=== PATIENT | female | born 1965 | race American Indian/Alaskan Native ===

== ENCOUNTER 2016-07-25 19:15 | Emergency (ER) | payer SELFPAY ==
[2016-07-25 20:36] VITALS: BP 151/93
--- NOTE | 2016-07-26 01:11 | Emergency Department Report ---
HPI - General Chief Complaint: Urogenital-Female Time Seen by Provider: 07/26/16 00:53 - HPI HPI: This is a 50-year-old female presents to ED complaining of vaginal discharge 2 weeks. Patient states she has had irregular periods since March 2016. Patient states last week she very heavy. With some pelvic pain and she went to primary [facility] and was seen. Patient states she was given an ultrasound that confirmed that she has fibroids. Patient was to follow-up with [facility] doctor but has not been able to follow-up 2 to insurance not active to August 03. Patient presents here today with concerns of vaginal irritation and discharge. Patient states that her discharge is a creamish greenish whitish and malodorous. Patient states vaginal itching as well. She denies dysuria/frequency or any other symptoms. ED Past Medical Hx - Past Medical History Hx Diabetes: Yes - Surgical History Additional Surgical History: TUBAL LIGATION - Social History Smoking Status: Never Smoker Substance Use Type: None - Medications Home Medications: Home Medications Medication Instructions Recorded Confirmed Last Taken Type Cyclobenzaprine [Flexeril 10 MG 10 mg PO TID PRN #15 tablet 10/28/14 Unknown Rx TAB] HYDROcodone/APAP 5-325 [Hughes 1 each PO Q8H PRN #15 tablet 10/28/14 Unknown Rx 5/325] metroNIDAZOLE [Flagyl TAB] 500 mg PO ONCE #4 tablet 07/26/16 Unknown Rx ED Review of Systems ROS: Stated complaint: VAG PAIN/DISCHARGE/IRREGULAR CYCLES Other details as noted in HPI Constitutional: denies: chills, fever Eyes: denies: eye pain, eye discharge, vision change ENT: denies: ear pain, throat pain Respiratory: denies: cough, shortness of breath, wheezing Cardiovascular: denies: chest pain, palpitations Endocrine: no symptoms reported Gastrointestinal: denies: abdominal pain, nausea, vomiting, diarrhea, constipation Genitourinary: abnormal menses. denies: urgency, dysuria, frequency, hematuria , discharge Musculoskeletal: denies: back pain, joint swelling, arthralgia Skin: denies: rash, lesions Neurological: denies: headache, weakness, paresthesias Psychiatric: denies: anxiety, depression Hematological/Lymphatic: denies: easy bleeding, easy bruising Physical Exam - Physical Exam Vital Signs: Vital Signs 07/25/16 20:32 Temperature 98.4 F Pulse Rate 100 H Respiratory 14 Rate Blood Pressure 151/93 O2 Sat by Pulse 100 Oximetry Physical Exam: GENERAL: Alert and oriented x3, no apparent distress, Normal Gait, atraumatic. HEAD: Head is normocephalic and a-traumatic. NECK: Supple. Non edematous, No carotid bruits. No lymphadenopathy or thyromegaly. No C-spine tenderness LUNGS: Symetrical with respiration, No wheezing, no rales or crackles, CTAB. HEART: S1, S2 present, regular rate and rhythm without murmur, no rubs, no gallops. ABDOMEN: No organomegaly was noted,Positive bowel sounds, soft, and non- distended. . Nontender to palpation on all Quadrants, NO CVA tenderness. GENITOURINARY: External genitalia without erythema, moderate external genitalia discharge seen. Vaginal vault is with severe greenish copious discharge. Cervix is of normal color without lesion. Cervical os is closed. Mild bleeding noted around vaginal gruber. Specifically upper vaginal wall Bleeding noted. Uterus is noted to be of normal size and nontender. Positive cervical motion tenderness. No masses are palpated. The adnexa are without masses or tenderness. EXTREMITIES/MUSCULOSKELETAL: No cyanosis, clubbing, rash, lesions or edema. Full ROM bilaterally. UE/LE Pulses 2+ bilaterally. Right ankle mild 1+ edema, no calf tenderness, pain, no right ankle pain, r ankle non tender to palpation ED Course Vital Signs 07/25/16 20:32 Temperature 98.4 F Pulse Rate 100 H Respiratory 14 Rate Blood Pressure 151/93 O2 Sat by Pulse 100 Oximetry ED Medical Decision Making - Medical Decision Making 50-year-old female presents with sexually-transmitted disease ED course: Wet prep and chlamydia and gonorrhea cultures sent to lab. Prep came back positive for trichomoniasis. Discussed findings with patient. Discussed the patient follow up with [facility] doctor or department for further STD testing and follow-up Patient treated empirically for all STD,- GC ,chlamydia and trich Patient sent home on another dose of metronidazole to take 1 time Discussed the patient is safe sex practices discussed possible treatment Discussed abstain from sex for about a week. Critical care attestation.: If time is entered above; I have spent that time in minutes in the direct care of this critically ill patient, excluding procedure time. ED Disposition Clinical Impression: Trichomonas vaginalis (TV) infection, STD (sexually transmitted disease) Disposition: DISCHARGED TO HOME OR SELFCARE Is pt being admited?: No Does the pt Need Aspirin: No Condition: Stable Instructions: Sexually Transmitted Diseases (ED), Safe Sex (ED), Trichomoniasis (ED) Prescriptions: metroNIDAZOLE [Flagyl TAB] 500 mg PO ONCE #4 tablet Referrals: PRIMARY CARE, [Primary Care Provider] - 3-5 Days [facility] [Outside] - 3-5 Days [facility] [Outside] - 3-5 Days Forms: Work/School Release Form(ED) Time of Disposition: 03:15
[2016-07-26] MEDS ORDERED: ROCEPHIN IM ONE (02:33)
[2016-07-26] MEDS ORDERED: FLAGYL PO ONE (02:34)
[2016-07-26] MEDS ORDERED: XYLOCAINE 1% MPF 5 mL INFILTRATI ONE (02:34)
[2016-07-26] MEDS ORDERED: ZITHROMAX PO ONE (02:34)
== END 2016-07-26 03:28 | disposition home or self-care (01) ==
LOC: ED 19:15
DX: A59.01 Trichomonal vulvovaginitis (principal); E11.9 Type 2 diabetes mellitus without complications; Z98.51 Tubal ligation status
CPT/HCPCS: 87210; 87591; 96372; 99284; J0696

== ENCOUNTER 2016-08-12 11:45 | Emergency (ER) | payer SELFPAY ==
[2016-08-12 12:54] LABS: Bilirubin,Urine NEG (Negative); Blood,Urine LG (Negative); Ketones,Urine NEG (Negative); Leukocyte Esterase,Urine NEG (Negative); Mucus,Urine FEW /HPF; Nitrite,Urine NEG (Negative); Urobilinogen,Urine < 2.0 mg/dL (<2.0)
[2016-08-12 12:55] LABS: RBC,Urine > 182.0 /HPF (0.0-6.0)
[2016-08-12 12:57] LABS: WBC,Urine < 1.0 /HPF (0.0-6.0)
[2016-08-12 12:59] LABS: Basophils % (Auto) 1.3 % (0.0-1.8); Eosinophils % (Auto) 3.4 % (0.0-4.3); Hematocrit 29.8 % (30.3-42.9); Hemoglobin 9.5 gm/dl (10.1-14.3); Mean Corpuscular HGB Conc 32 % (30-34); Mean Corpuscular Volume 80 fl (79-97); Platelet Count 264 K/mm3 (140-440); Red Blood Count 3.75 M/mm3 (3.65-5.03); Red Cell Distribution Width 14.8 % (13.2-15.2); White Blood Count 5.8 K/mm3 (4.5-11.0)
[2016-08-12 13:00] LABS: Mean Corpuscular Hemoglobin 25 pg (28-32)
[2016-08-12 13:01] LABS: BUN/Creatinine Ratio 27.14; Blood Urea Nitrogen 19 mg/dL (7-17); Calcium 9.3 mg/dL (8.4-10.2); Carbon Dioxide 25 mmol/L (22-30); Glucose 440 mg/dL (65-100)
[2016-08-12 13:02] LABS: Anion Gap 18 mmol/L; Potassium 4.1 mmol/L (3.6-5.0); Sodium 134 mmol/L (137-145)
[2016-08-12] MEDS ORDERED: NACL 0.9% 1000 ML 1,000 ML IV ONE (18:28)
--- NOTE | 2016-08-12 19:53 | History and Physical Report ---
Medications and Allergies Allergies Allergy/AdvReac Type Severity Reaction Status Date / Time ciprofloxacin [From Cipro] AdvReac Rash Verified 08/12/16 11:58 ciprofloxacin HCl AdvReac Rash Verified 08/12/16 11:58 [From Cipro] Exam - Constitutional Vitals: Temp Pulse Resp BP Pulse Ox 98.7 F 78 16 155/78 100 08/12/16 19:07 08/12/16 19:07 08/12/16 19:07 08/12/16 19:07 08/12/16 19:07 Results - Labs CBC & Chem 7: 08/12/16 12:32 08/12/16 12:32 Labs: Abnormal lab results 08/12/16 08/12/16 08/12/16 Range/Units 12:01 12:32 12:32 Hgb 9.5 L (10.1-14.3) gm/dl Hct 29.8 L (30.3-42.9) % MCH 25 L (28-32) pg Lymph % (Auto) 41.0 H (13.4-35.0) % [place] % (Auto) 9.1 H (0.0-7.3) % Sodium 134 L (137-145) mmol/L Chloride 95.0 L (98-107) mmol/L BUN 19 H (7-17) mg/dL Glucose 440 H (65-100) mg/dL POC Glucose 450 H (70-105) Hemoglobin A1c (4-6) % 08/12/16 Range/Units 12:32 Hgb (10.1-14.3) gm/dl Hct (30.3-42.9) % MCH (28-32) pg Lymph % (Auto) (13.4-35.0) % [place] % (Auto) (0.0-7.3) % Sodium (137-145) mmol/L Chloride (98-107) mmol/L BUN (7-17) mg/dL Glucose (65-100) mg/dL POC Glucose (70-105) Hemoglobin A1c 14.4 H (4-6) %
--- NOTE | 2016-08-12 22:28 | Emergency Department Report ---
<JOSHUA AYALA - Last Filed: 08/13/16 00:54> - General Chief complaint: Hyperglycemia Stated complaint: SEVERE YEAST INFECTION Time Seen by Provider: 08/12/16 18:27 Source: patient Mode of arrival: Ambulatory Limitations: No Limitations - History of Present Illness MD Complaint: generalized weakness -: Gradual Location: generalized Severity: mild Severity scale (0 -10): 0 Consistency: constant Improves with: medication (which she does not take) Worsens with: other (nto taking meds) Context: other (also vaginal itching. cg recently neg. took cipro and no better) Associated Symptoms: denies other symptoms - Related Data Previous Rx's Medication Instructions Recorded Last Taken Type Fluconazole [Diflucan] 100 mg PO QDAY #1 bottle 08/12/16 Unknown Rx glipiZIDE [Glucotrol Xl] 5 mg PO DAILY #30 tab.er.24 08/12/16 Unknown Rx Allergies Allergy/AdvReac Type Severity Reaction Status Date / Time ciprofloxacin [From Cipro] AdvReac Rash Verified 08/12/16 11:58 ciprofloxacin HCl AdvReac Rash Verified 08/12/16 11:58 [From Cipro] ED Review of Systems ROS: Stated complaint: SEVERE YEAST INFECTION Other details as noted in HPI Comment: All other systems reviewed and negative Constitutional: no symptoms reported, see HPI. denies: chills, diaphoresis, fever Eyes: as per HPI. denies: eye pain ENT: as per HPI. denies: ear pain, throat pain Respiratory: no symptoms reported, see HPI. denies: cough, orthopnea Cardiovascular: as per HPI. denies: chest pain, palpitations Endocrine: no symptoms reported, see HPI. denies: excessive sweating, flushing , intolerance to cold, intolerance to heat Gastrointestinal: as per HPI. denies: abdominal pain, nausea, vomiting, diarrhea, constipation, hematemesis, melena, hematochezia Genitourinary: as per HPI, frequency. denies: urgency, dysuria Musculoskeletal: denies: as per HPI ED Past Medical Hx - Past Medical History Previous Medical History?: Yes Hx Hypertension: No Hx CVA: No Hx Heart Attack/AMI: No Hx Congestive Heart Failure: No Hx Diabetes: Yes (TYPE 2) Hx Deep Vein Thrombosis: No Hx Pulmonary Embolism: No Hx GERD: No Hx Liver Disease: No Hx Renal Disease: No Hx of Cancer: No Hx Sickle Cell Disease: No Hx Arthritis: No Hx Headaches / Migraines: No Hx Seizures: No Hx Kidney Stones: No Hx Psychiatric Treatment: No Hx Asthma: No Hx COPD: No Hx Tuberculosis: No Hx Dementia: No Hx HIV: No - Surgical History Past Surgical History?: Yes Hx Coronary Stent: No Hx Open Heart Surgery: No Hx Pacemaker: No Hx Internal Defibrillator: No Hx Cholecystectomy: No Hx Appendectomy: No Hx Breast Surgery: No Additional Surgical History: TUBAL LIGATION - Social History Smoking Status: Never Smoker Substance Use Type: None - Medications Home Medications: Home Medications Medication Instructions Recorded Confirmed Last Taken Type Fluconazole [Diflucan] 100 mg PO QDAY #1 bottle 08/12/16 Unknown Rx glipiZIDE [Glucotrol Xl] 5 mg PO DAILY #30 tab.er.24 08/12/16 Unknown Rx ED Physical Exam - General Limitations: No Limitations General appearance: alert, in no apparent distress - Head Head exam: Present: atraumatic - Eye Eye exam: Present: normal appearance Pupils: Present: normal accommodation - ENT ENT exam: Present: normal exam, normal orophraynx, mucous membranes moist - Neck Neck exam: Present: normal inspection. Absent: tenderness - Respiratory Respiratory exam: Present: normal lung sounds bilaterally. Absent: respiratory distress, wheezes, rales, rhonchi, stridor - Cardiovascular Cardiovascular Exam: Present: regular rate, normal rhythm (95 on exam). Absent : bradycardia, tachycardia, irregular rhythm - GI/Abdominal GI/Abdominal exam: Present: soft, normal bowel sounds. Absent: distended, tenderness, guarding, rebound, rigid, diminished bowel sounds, hyperactive bowel sounds, hypoactive bowel sounds, organomegaly, mass, bruit, pulsatile mass , hernia - Rectal Rectal exam: Present: deferred - External exam: Present: normal external exam, other (states vaginal dc less than before. chart reviewed. not concerned for std. discussed role of bs in vag itching etc. ) - Extremities Exam Extremities exam: Present: normal inspection, full ROM, tenderness - Back Exam Back exam: Present: normal inspection - Neurological Exam Neurological exam: Present: alert, altered, oriented X3, CN II-XII intact, normal gait, reflexes normal. Absent: abnormal gait, motor sensory deficit - Psychiatric Psychiatric exam: Present: normal affect, normal mood. Absent: depressed, agitated, anxious, flat affect, manic, homicidal ideation, suicidal ideation - Skin Skin exam: Present: warm, dry, intact, normal color. Absent: rash, cyanosis, diaphoretic, erythema, urticaria, vesicles, petechiae, pallor, abrasion, ecchymosis ED Course Vital Signs 08/12/16 08/12/16 08/12/16 12:04 19:07 20:04 Temperature 98.2 F 98.7 F Pulse Rate 104 H 78 Respiratory 18 16 Rate Blood Pressure 122/79 Blood Pressure 155/78 [Right] O2 Sat by Pulse 98 100 98 Oximetry 08/12/16 22:43 Temperature Pulse Rate 95 H Respiratory 18 Rate Blood Pressure Blood Pressure 157/81 [Right] O2 Sat by Pulse 98 Oximetry - Reevaluation(s) Reevaluation #1: 08/12/16 pt has known dm she can not take metformin bc of gi distress here recent for vag itching does not have insurance lives in [facility] Discussed [facility] she will fu to get access to clinic discussed dm and role of sugar on body etc. she is in nad no cp no sob ambulatory taking po insulin Reevaluation #2: Dr. Murray given report. labs noted will send home on po and arrange follow up at [facility] given [facility] resident 08/12/16 22:35 doing well no cp no sob bs trending down ED Medical Decision Making - Lab Data Result diagrams: 08/12/16 12:32 08/12/16 12:32 - Medical Decision Making dm non adherent due to finances no dka pt educated plan of care dc home w [facility] follow up once bs trends downward Critical care attestation.: If time is entered above; I have spent that time in minutes in the direct care of this critically ill patient, excluding procedure time. ED Disposition Disposition: DC-09 OP ADMIT IP TO THIS HOSP Is pt being admited?: No Does the pt Need Aspirin: No Condition: Stable Instructions: Diabetes Mellitus Type 2 in Adults (ED), Meal Planning with Diabetes Exchanges (DC), Hyperglycemia, Non-Diabetic (ED), Diabetic Hyperglycemia (ED) Additional Instructions: take med as ordered follow up with [facility] as we discussed they can call here and get the records from today diabetic diet drink plenty of water safe sex Prescriptions: Fluconazole [Diflucan] 100 mg PO QDAY #1 bottle glipiZIDE [Glucotrol Xl] 5 mg PO DAILY #30 tab.er.24 Referrals: PRIMARY CARE,MD [Primary Care Provider] - 3-5 Days [facility] [Outside] - 3-5 Days Time of Disposition: 22:48 <MAYLIN MURRAY - Last Filed: 08/13/16 12:26> ED Medical Decision Making - Lab Data Result diagrams: 08/12/16 12:32 08/12/16 12:32 - Medical Decision Making PT was prescribed Diflucan 100 mg daily one bottle. I called the patient to let her know that I will be calling in a different dose at her pharmacy. I called the [facility] at the [facility] of [facility] and [address] at [phone]. Spoke to the pharmacist and clarify patient's Diflucan 150 by mouth 1 dose. I informed patient not to fill the previously prescribed Diflucan dose.
[2016-08-12 22:44] VITALS: BP 157/81
== END 2016-08-12 23:04 | disposition admitted as inpatient to this hospital (09) ==
LOC: ED 11:45
DX: N89.8 Other specified noninflammatory disorders of vagina (principal); R53.1 Weakness; E11.9 Type 2 diabetes mellitus without complications; Z88.1 Allergy status to other antibiotic agents
CPT/HCPCS: 36415; 80048; 81001; 82805; 82962; 83036; 84703; 85025; 96361; 96374; 96376; 99284; J7030; J1815

== ENCOUNTER 2016-10-16 16:52 | Emergency (ER) | payer SELFPAY ==
[2016-10-16 19:28] LABS: Hematocrit 30.7 % (30.3-42.9); Hemoglobin 9.5 gm/dl (10.1-14.3); Mean Corpuscular HGB Conc 31 % (30-34); Mean Corpuscular Volume 74 fl (79-97); Platelet Count 332 K/mm3 (140-440); Red Blood Count 4.18 M/mm3 (3.65-5.03); Red Cell Distribution Width 17.2 % (13.2-15.2); White Blood Count 9.1 K/mm3 (4.5-11.0)
[2016-10-16 19:37] LABS: Mean Corpuscular Hemoglobin 23 pg (28-32)
[2016-10-16 19:41] LABS: Albumin 3.5 g/dL (3.9-5); Albumin/Globulin Ratio 0.9 %; BUN/Creatinine Ratio 16.66; Bilirubin,Total 0.4 mg/dL (0.1-1.2); Calcium 8.7 mg/dL (8.4-10.2); Potassium 3.7 mmol/L (3.6-5.0); Total Protein 7.5 g/dL (6.3-8.2)
[2016-10-17] MEDS ORDERED: NACL 0.9% 1000 ML 1,000 ML IV ONE (01:20)
[2016-10-17] MEDS ORDERED: AMARYL PO ONE (01:30)
--- NOTE | 2016-10-17 01:31 | Emergency Department Report ---
HPI - General Chief Complaint: Hyperglycemia Time Seen by Provider: 10/17/16 01:20 - HPI HPI: 50-year-old -[place] female with history of diabetes for close to 20 years, has been out of medication for the past year. Today she was working at [employer] boxes outside in the hot air, felt very weak, unwell, thirsty and dizzy. Patient left work and walked to the bus stop, so she was given a pass out so she proceeded to walk to the fire department where she got help. Her glucose was found to be elevated and she was referred to the ED. ED Past Medical Hx - Past Medical History Previous Medical History?: Yes Hx Hypertension: No Hx CVA: No Hx Heart Attack/AMI: No Hx Congestive Heart Failure: No Hx Diabetes: Yes (TYPE 2) Hx Deep Vein Thrombosis: No Hx Pulmonary Embolism: No Hx GERD: No Hx Liver Disease: No Hx Renal Disease: No Hx Sickle Cell Disease: No Hx Arthritis: No Hx Headaches / Migraines: No Hx Seizures: No Hx Kidney Stones: No Hx Psychiatric Treatment: No Hx Asthma: No Hx COPD: No Hx Tuberculosis: No Hx Dementia: No Hx HIV: No - Surgical History Hx Coronary Stent: No Hx Open Heart Surgery: No Hx Pacemaker: No Hx Internal Defibrillator: No Hx Cholecystectomy: No Hx Appendectomy: No Hx Breast Surgery: No Additional Surgical History: TUBAL LIGATION - Family History Family history: hypertension - Social History Smoking Status: Never Smoker Substance Use Type: None - Medications Home Medications: Home Medications Medication Instructions Recorded Confirmed Last Taken Type Fluconazole [Diflucan] 100 mg PO QDAY #1 bottle 08/12/16 Unknown Rx glipiZIDE [Glucotrol Xl] 5 mg PO DAILY #30 tab.er.24 08/12/16 Unknown Rx ED Review of Systems ROS: Stated complaint: HIGH BLOOD SUGAR Other details as noted in HPI Comment: All other systems reviewed and negative Endocrine: excessive sweating, flushing, increased thirst, increased urine Gastrointestinal: as per HPI Physical Exam - Physical Exam Vital Signs: Vital Signs 10/16/16 10/17/16 17:12 00:54 Temperature 98.6 F Pulse Rate 93 H 84 Respiratory 18 18 Rate Blood Pressure 104/57 Blood Pressure 136/91 [Right] O2 Sat by Pulse 100 100 Oximetry Physical Exam: Gen. alert and oriented 3 in no distress Head atraumatic normocephalic Eyes PERR LA EOMI Chest regular rate and rhythm normal S1-S2 lungs clear bilaterally Abdomen soft nondistended Back no point tenderness paravertebral tenderness Neuro no focal deficit. Psych normal mood. ED Course Vital Signs 10/16/16 10/17/16 17:12 00:54 Temperature 98.6 F Pulse Rate 93 H 84 Respiratory 18 18 Rate Blood Pressure 104/57 Blood Pressure 136/91 [Right] O2 Sat by Pulse 100 100 Oximetry ED Medical Decision Making - Lab Data Result diagrams: 10/16/16 19:06 10/16/16 19:06 Critical care attestation.: If time is entered above; I have spent that time in minutes in the direct care of this critically ill patient, excluding procedure time. ED Disposition Clinical Impression: Hyperglycemia, Dehydration Disposition: DC-01 TO HOME OR SELFCARE Is pt being admited?: No Does the pt Need Aspirin: No Condition: Stable Referrals: PRIMARY CARE, [Primary Care Provider] - 3-5 Days
[2016-10-17 04:45] VITALS: BP 147/79
== END 2016-10-17 04:45 | disposition home or self-care (01) ==
LOC: ED 16:52
DX: E11.65 Type 2 diabetes mellitus with hyperglycemia (principal); R42 Dizziness and giddiness; Z88.1 Allergy status to other antibiotic agents
CPT/HCPCS: 36415; 80053; 82805; 82962; 84703; 85025; 96361; 96374; 99283; J7030; J1815

== ENCOUNTER 2019-11-19 10:28 | Outpatient (CLI) | payer OTHER ==
--- NOTE | 2019-11-19 13:40 | XRay Report ---
RIGHT FOOT 2 VIEW(S) INDICATION / CLINICAL INFORMATION: BILATERAL FOOT PAIN COMPARISON: None available. 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 No significant arthri tis. SOFT TISSUES: No significant abnormality. ADDITIONAL FINDINGS: None. LEFT FOOT 2 VIEW(S) INDICATION / CLINICAL INFORMATION: BILATERAL FOOT PAIN COMPARISON: None available. FINDINGS: BONES / JOINT(S): Neuropathic change with mild lateral subluxation base of second metatarsal with res pect to the intermediate cuneiform. 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 ADDITIONAL FINDINGS: None. Signer Name: Alfredo Kramer MD Signed: 11/19/2019 1:36 PM Workstation Name: [id number]
== END 2019-11-19 10:29 | disposition home or self-care (01) ==
LOC: XRAY 10:28
PROVIDERS: ATTEND Internal Medicine
DX: M19.072 Primary osteoarthritis, left ankle and foot (principal); M19.071 Primary osteoarthritis, right ankle and foot
CPT/HCPCS: 36415; 83036